=== PATIENT | female | born 1940 | race Caucasian/White ===

== ENCOUNTER → 2020-04-24 18:30 | Outpatient (BNVA) | payer MEDICARE, OTHER, SELFPAY | PROVIDERS: Family Provider Family Medicine; Visit Provider Nurse Practitioner Family | DX: Z11.59 Encounter for screening for other viral diseases (principal) | CPT/HCPCS: 87635 ==

== ENCOUNTER 2020-10-31 08:40 | Emergency (ER) | payer MEDICARE, OTHER, SELFPAY ==
[2020-10-31 08:59] VITALS: BP 147/58; PULSE 61; RESP 18; TEMP 37.1; O2SAT 95; BMI 38.7
[2020-10-31 09:06] VITALS: BP 147/58; PULSE 52; RESP 18; O2SAT 100
--- NOTE | 2020-10-31 09:14 | ED_ITS ---
HPI - Extremity Problem General: Chief complaint: Extremity Injury, Lower Stated complaint: R KNEE ISSUES Time Seen by Provider: 10/31/20 08:42 History of Present Illness: HPI Narrative: Patient is an 80-year-old female comes to the ED with right knee pain. Patient says she has chronic right knee pain when she walks but today she woke up and says it was hard for her to stand her knee due to pain. She denies any injury fall or trauma to cause any acute knee pain. She took some Tylenol last night for pain. Patient says she does have history of arthritis in her knees and has had steroid joint injections in both knees in the past. Denies any erythema or warmth in her right knee. Associated symptoms: Deny chest pain, fever(s) or rash Review of Systems Const: Denies: fever(s), chills or fatigue Eyes: Denies: change in vision or eye discomfort ENMT: Denies: throat pain, odynophagia, nasal discharge or nasal congestion Card: Denies: chest pain, palpitations, edema, swelling of feet/ankles, dyspnea on exertion or orthopnea Resp: Denies: dyspnea, productive cough or non-productive cough GI: Denies: abdominal pain, nausea, vomiting, diarrhea, constipation or hematochezia : Denies: flank pain, dysuria or hematuria Musc: Reports: joint pain (right knee); Denies: neck pain, back pain or extremity swelling Skin/Breast: Denies: rash or new lesions Neuro: Denies: headache(s), numbness in extremities or weakness in extremities PFS ED PFSH: Social History Smoking and tobacco status: never smoked Alcohol intake: never Physical Exam Const: COMMON NORMALS: no acute distress, patient oriented x3 and alert GENERAL APPEARANCE: cooperative and comfortable HENMT: COMMON NORMALS: normocephalic HEAD & SCALP: normocephalic MOUTH: Normal oral and palatal mucosa present THROAT: posterior oropharynx normal and uvula midline Neck/C-Spine: COMMON NORMALS: supple GENERAL: Yes normal visual inspection Resp: COMMON NORMALS: normal respiratory effort, No retractions, No use of accessory muscles and clear to auscultation bilaterally AUSCULTATION: clear to auscultation bilaterally Cardio: COMMON NORMALS: regular rate, regular rhythm, S1 normal heart sound present, S2 normal heart sound present, No gallops present (Cardio), No clicks present (Cardio), No murmurs present (Cardio) and Peripheral pulses 2+ throughout RATE: regular rate RHYTHM: regular rhythm HEART SOUNDS: S1 normal heart sound present and S2 normal heart sound present PERIPHERAL PULSES: Peripheral pulses 2+ throughout GI: COMMON NORMALS: Normal to inspection, nondistended, normoactive bowel sounds present, Soft to palpation, non-tender and no masses PALPATION: Yes Soft to palpation : COMMON NORMALS: Yes no CVA tenderness BLADDER/KIDNEY EXAM: Yes no CVA tenderness Back/Pelvis: COMMON NORMALS: no CVA tenderness Extremity: COMMON NORMALS: normal to inspection NARRATIVE EXTREMITY EXAM: Patient's right knee had no visible deformity, erythema or warmth. It was nontender to palpation no ecchymosis or edema seen around knee. Neuro: COMMON NORMALS: patient oriented x3 and moves all extremities SENSORIUM/ORIENTATION: Yes alert Skin: GENERAL SKIN EXAM: dry skin Course Vital Signs: Vital signs: Vital Signs Temperature 98.7 F 10/31/20 10:36 Pulse Rate 45 L 10/31/20 10:36 Respiratory Rate 18 10/31/20 10:36 Blood Pressure 146/43 10/31/20 10:36 Pulse Oximetry 99 10/31/20 10:36 MDM - Extremity (Nontraumatic) MDM Narrative: Medical decision making narrative: Patient is an 80-year-old female comes in the ED with right knee pain. Denies any trauma or injury to cause right knee pain. She admits to having some chronic osteoarthritis in both knees and has gotten injections in the past for them. Patient says today she woke up she was having increased pain in right knee when weightbearing and it hurts when she extends her right knee. Right knee x-ray shows some prominent degenerative joint disease and joint effusion. Patient diagnosed with ost eoarthritis right knee and discharged home. I placed an order with case management for patient to be referred to orthopedic doctor for further evaluation of right knee. Told patient to rest, ice right knee and to take Tylenol or Motrin for pain. I told her case management will contact her in the next several days set up appoint with Ortho. Patient understood and agreed with plan. Imaging Data^: Xray Ortho: Attestation: I personally reviewed and interpreted this imaging study as follows: My impression: Radiologist's impression: [facility] [address] [place] [address] XRay Report Signed Patient: Teena Donohue Unit #: [id number] : 1940 Age/Sex: 80 / F ADM Date: 10/31/20 Loc: ER Room/Bed: Attending Dr: Ordering Provider/Ordering MD: Dav Cooper Date of Service: 10/31/20 Procedure(s): XR knee RT 3V* [id number] Accession Number(s): [id number] Report Number: [id number] PROCEDURE INFORMATION: Exam: XR Right Knee Exam date and time: 10/31/2020 9:15 AM Age: 80 years old Clinical indication: Pain; Knee; Right TECHNIQUE: Imaging protocol: XR Right knee. Views: 3 views. COMPARISON: No relevant prior studies available. FINDINGS: Bones/joints: A joint effusion is present with fluid in suprapatellar bursa. No fracture is seen. Prominent degenerative disease is present with osteophytes on the patella femoral condyles and tibial plateau. There is joint space narrowing and sclerosis especially in the lateral compartment. Soft tissues: Normal. XR/XR knee RT 3V* [id number] IMPRESSION: 1. Joint effusion. 2. Prominent degenerative disease. Dictated By: Dheeraj Bravo Signed By: Dheeraj Bravo Signed Date/Time: 10/31/20 1015 DD/ 1014 Discharge Plan Discharge Patient Disposition: Home Clinical Impression: Osteoarthritis of right knee Qualifiers: Osteoarthritis type: primary Qualified Code(s): M17.11 - Unilateral primary osteoarthritis, right knee Condition: Stable Prescriptions: No Action hydrochlorothiazide 25 mg tablet 25 mg PO DAILY RF: 0 Discharge Orders: Discharge ED (Routine); Ordered 10/31/20 Ordered By: Dav Cooper Referrals: Jacobo Kidd MD [Primary Care Provider] - Discharge Diet: Regular Discharge Activity: Increase activity as tolerated Patient Instructions: Osteoarthritis (ED) Activity Restrictions/Additional Instructions: Follow-up with medical provider as directed. Case management will be contacting you in the next several days to set up an appointment with orthopedic doctor. Take [id number] Tylenol or ibuprofen for knee pain. Rest and ice right knee to help with symptoms.. Return to the ER or your medical provider if condition worsens. Please read and understand discharge instructions. If any questions, please ask. Coding Level of Care Code ED Automatic I Threading Machine Feeder for Flavio Fwtyra Exam Comprehensive
[2020-10-31] MEDS: ibuprofen 600 mg Tablet PO (09:18)
[2020-10-31 10:36] VITALS: BP 146/43; PULSE 45; RESP 18; TEMP 37.1; O2SAT 99
--- NOTE | 2020-11-02 12:12 | DCPLANNER ---
heavy equipment sales manager had message to schedule a follow up appointment for patient with ortho. heavy equipment sales manager called the ortho clinic, spoke with Robina, gave clinic patients information. heavy equipment sales manager was told that patients information would be printed and reviewed. Clinic will call patient with appointment information.
--- NOTE | 2020-11-05 08:10 | DCPLANNER ---
Patient has a follow up appointment scheduled for , November 19, 2020 at 11:[address] Whatley at. Clinic will call patient with appointment information.
--- NOTE | 2020-12-08 08:22 | DCPLANNER ---
Patient had a follow up appointment scheduled for 11.19.[address] Whatley at [facility] - patient did attend appointment.
== END 2020-10-31 10:46 | disposition home or self-care (01) ==
PROVIDERS: Emergency Provider Physician Assistant; PCP Family Medicine
DX: M17.11 Unilateral primary osteoarthritis, right knee (principal)
CPT/HCPCS: 73562; 99283

== ENCOUNTER → 2020-11-19 12:13 | Outpatient (BNVA) | payer MEDICARE, OTHER, SELFPAY | PROVIDERS: PCP Family Medicine; Referring Provider Physician Assistant; Visit Provider Specialist | DX: M17.0 Bilateral primary osteoarthritis of knee (principal) | CPT/HCPCS: 73560; 73565 ==

== ENCOUNTER → 2021-04-09 09:59 | Outpatient (BNVA) | payer MEDICARE, OTHER, SELFPAY | PROVIDERS: PCP Family Medicine; Visit Provider Nurse Practitioner Family | DX: Z20.822 Contact with and (suspected) exposure to COVID-19 (principal) | CPT/HCPCS: 87426; 87635 ==

== ENCOUNTER → 2022-07-21 13:12 | Outpatient (BNVA) | payer MEDICARE, OTHER, SELFPAY | PROVIDERS: PCP Family Medicine; Visit Provider Family Medicine | DX: M17.11 Unilateral primary osteoarthritis, right knee (principal); L65.9 Nonscarring hair loss, unspecified | CPT/HCPCS: 84443 ==

== ENCOUNTER → 2022-08-17 13:11 | Outpatient (BNVA) | payer MEDICARE, OTHER, SELFPAY | PROVIDERS: PCP Family Medicine; Referring Provider Family Medicine; Visit Provider Specialist | DX: M17.0 Bilateral primary osteoarthritis of knee; M21.061 Valgus deformity, not elsewhere classified, right knee; M21.162 Varus deformity, not elsewhere classified, left knee | CPT/HCPCS: 73560; 73565; 99214 ==

== ENCOUNTER 2022-09-06 11:11 | Outpatient (CLI) | payer MEDICARE, OTHER, SELFPAY ==
--- NOTE | 2022-09-06 14:30 | CT_ITS ---
WS: [id number] CT RIGHT knee, noncontrast HISTORY: right knee pain TECHNIQUE: Protocol for JC total knee replacement has been obtained. This includes axial imaging th rough the RIGHT hip, RIGHT knee and RIGHT ankle. DLP: 872.07 mGy.cm COMPARISON: None available. Pelvis: No significant joint space narrowing at the hips. No osseous destruction. Sigmoid diverticula r disease. RIGHT knee: Tricompartment joint space narrowing with osteophytes. Small effusion. RIGHT ankle: No significant joint space narrowing or bone destruction. CT/CT knee RT wo con* [id number] IMPRESSION: CT imaging provided for CJ robotic total knee replacement.
== END 2022-09-06 11:12 | disposition home or self-care (01) ==
LOC: RAD 11:12
PROVIDERS: PCP Family Medicine; Visit Provider Specialist
DX: M17.11 Unilateral primary osteoarthritis, right knee (principal)
CPT/HCPCS: 73700

== ENCOUNTER → 2022-09-19 09:01 | Outpatient (BNVA) | payer MEDICARE, OTHER, SELFPAY | PROVIDERS: PCP Family Medicine; Visit Provider Specialist | DX: M17.11 Unilateral primary osteoarthritis, right knee (principal); M21.061 Valgus deformity, not elsewhere classified, right knee | CPT/HCPCS: 99214 ==

== ENCOUNTER 2022-09-20 06:00 | Outpatient (CLI) | payer MEDICARE, OTHER, SELFPAY | END 2022-09-20 06:01 | disposition home or self-care (01) | LOC: LAB 09-23 08:28 | PROVIDERS: PCP Family Medicine; Visit Provider Specialist | DX: Z01.89 Encounter for other specified special examinations (principal) | CPT/HCPCS: 80053; 81001; 85025 ==

== ENCOUNTER 2022-09-20 11:56 | Outpatient (CLI) | payer MEDICARE, OTHER, SELFPAY | END 2022-09-20 11:57 | disposition home or self-care (01) | LOC: RT 11:57 | PROVIDERS: PCP Family Medicine; Visit Provider Specialist | DX: Z13.6 Encounter for screening for cardiovascular disorders (principal); I45.10 Unspecified right bundle-branch block | CPT/HCPCS: 93005 ==

== ENCOUNTER 2022-09-27 18:01 | Observation (INO) | payer MEDICARE, OTHER, SELFPAY ==
[2022-09-20 10:13] VITALS: BMI 34.9
--- NOTE | 2022-09-20 10:15 | ECG_ITS ---
[facility] Test Date: 2022-09-20 Pat Name: Teena Donohue Department: Room: Gender: Female Clinical Research Management Associate: : 1940 Requested By: Spenser Baires Order Number: [id number] Alice MD: Mohsen Rob M.D. Measurements Intervals [place] Rate: 77 P: 1 ME: 157 QRS: -22 QRSD: 143 T: 25 QT: 426 QTc: 484 Interpretive Statements SINUS RHYTHM WITH FREQUENT VENTRICULAR PREMATURE COMPLEXES RIGHT BUNDLE BRANCH BLOCK [120+ ms QRS DURATION, UPRIGHT V1, 40+ ms S IN I/aVL/V4/V5/V6] POSSIBLE ANTERIOR MYOCARDIAL INFARCTION , OF INDETERMINATE AGE [30 ms Q WAVE IN V3/V4, OR R < 0.2 mV IN V4] No previous ECG available for comparison Electronically Signed On 09-20-2022 11:45:35 MH TEACHER by Mohsen Rob M.D. [email or web address]
[2022-09-20 11:00] LABS: Basophils # 0.1 10^3/uL (0.0-0.1); Basophils % 0.7 %; Eosinophils # 0.2 10^3/uL (0.0-0.8); Eosinophils % 2.1 %; Hematocrit 40.2 % (37.0-47.0); Hemoglobin 13.2 g/dL (11.5-15.3); Lymphocytes # 2.2 10^3/uL (0.8-4.8); Lymphocytes % 29.8 %; Mean Corpuscular HGB Conc 32.8 g/dL (30.0-36.0); Mean Corpuscular Hemoglobin 30.6 pg (28.0-34.0); Mean Corpuscular Volume 93.3 fl (81-99); Mean Platelet Volume 11.3 fL (7.4-10.4); Monocytes # 0.7 10^3/uL (0.2-0.9); Monocytes % 9.1 %; Neutrophils # 4.22 10^3/uL (1.8-7.7); Neutrophils % 57.9 %; Nucleated Red Blood Cells % 0 %; Platelet Count 229 10^3/cmm (130-400); Red Blood Count 4.31 10^6/uL (4.1-5.3); Red Cell Distribution Width 12.3 % (12.1-15.1); White Blood Count 7.3 10^3/uL (4.0-10.0)
[2022-09-20 11:21] LABS: Alanine Aminotransferase 15 U/L (0-33); Albumin Level 3.7 g/dL (3.5-5.2); Alkaline Phosphatase 70 U/L (35-105); Aspartate Amino Transferase 18 U/L (0-32); Blood Urea Nitrogen 15 mg/dL (8-23); Calcium 10.1 mg/dL (8.5-10.5); Carbon Dioxide 29 mmol/L (22-29); Chloride 95 mmol/L (98-107); Globulin 2.9 g/dL (1.3-4.6); Glucose 152 mg/dL (65-115); Osmolality Calculated 286 mOsm/kg (285-295); Sodium 136 mmol/L (136-145); Total Bilirubin 0.3 mg/dL (0.15-1.2); Total Protein 6.6 g/dL (6.6-8.7)
[2022-09-20 11:49] LABS: Bilirubin Urine Neg (Negative); Blood Urine Neg (Negative); Glucose Urine UA Norm (Normal); Ketones Urine Negative (Negative); Leukocyte Esterase Urine Trace (Negative); Nitrate Urine Negative (Negative); Protein Urine Neg (Negative); Specific Gravity, Urine 1.015 (1.005-1.030); Urine Appearance Clear (CLEAR); Urine Color Yellow (Yellow); Urobilinogen Urine Norm (Negative); pH Urine 6.5 (5-7)
[2022-09-20 11:50] LABS: Add Urine Microscopic? YES; Amorphous Sediment Urine TRACE /hpf; Bacteria Urine TRACE /hpf; Mucus Urine TRACE /hpf; Squamous Epithelial Cell Urine 0-4 /hpf (0-5); WBC Urine 0-4 /hpf (0-5)
[2022-09-20 11:51] LABS: Add Urine Culture? No; Hyaline Casts Urine RARE /lpf
--- NOTE | 2022-09-20 13:35 | ANES.PREANE2 ---
Pre-Anesthetic Assessment Height/Weight: Height 1.57 m Weight 86.636 kg Preop Diagnosis: Severe osteoarthritis right knee Operation Date: 09/27/22 13:50 Proposed Procedures p RIGHT TOTAL KNEE ARTHROPLASTY WITH JC GUIDANCE 99359,M1710(Right) - Ericka Whatley MD Familial anesthetic complications: none Was Beta Diana taken within 24 hours: Yes Was Clonidine taken within 24 hours: N/A Social No alcohol and No tobacco Exam alert, oriented x 3, clear to auscultation bilaterally and regular rate & rhythm Airway Submandibular: within normal limits Cervical ROM: within normal limits Mallampati: Class II Dentition: chipped CV/HEM Hypertension Metabolic Morbid Obesity [facility] Osteoarthritis/DJD Anesthetic Plan ASA status: 3 Anesthesia: Regional (specify below) (SAB with adductor blk) Medications/Allergies Home Medications Medication Instructions Recorded Confirmed Last Taken Type atenolol 50 mg-chlorthalidone 25 1 tab PO DAILY 03/12/22 09/20/22 1 Day Ago History mg tablet ~09/19/22 allopurinol 100 mg tablet 100 mg PO DAILY #30 tabs 08/05/22 09/20/22 1 Day Ago Rx ~09/19/22 acetaminophen 500 mg tablet 500 mg PO Q6H PRN Pain 08/17/22 09/20/22 1 Day Ago History (Tylenol Extra Strength) ~09/19/22 cholecalciferol (vitamin D3) 25 25 mcg PO DAILY 08/17/22 09/20/22 1 Day Ago History mcg/drop (1,000 unit/drop) oral ~09/19/22 drops cinnamon bark-chromium picolinate cap PO 08/17/22 09/19/22 1 Day Ago History 500 mg-100 mcg capsule ~09/19/22 glucosamine-chondroitin 250 mg-200 2 tab PO TID 08/17/22 09/20/22 1 Day Ago History mg tablet (Osteo Bi-Flex) ~09/19/22 magnesium chloride 71.5 mg 71.5 mg PO DAILY 08/17/22 09/20/22 1 Week Ago History (magnesium chloride) ~09/13/22 tablet,delayed release (Slow-Mag) potassium citrate 99 mg capsule mg PO 08/17/22 09/19/22 1 Week Ago History ~09/13/22 Allergies Allergy/AdvReac Type Severity Reaction Status Date / Time No Known Allergies Allergy Verified 09/20/22 10:06 [facility] Anesthesia Social History Smoking and tobacco status: never smoked Alcohol intake: never Data Anesthesia 09/20/22 10:35 09/20/22 10:35 Short CBC 09/20/22 Range/Units 10:35 WBC 7.3 (4.0-10.0) 10^3/uL Hgb 13.2 (11.5-15.3) g/dL Hct 40.2 (37.0-47.0) % MCV 93.3 (81-99) fl Plt Count 229 (130-400) 10^3/cmm Neut % (Auto) 57.9 % Neut # (Auto) 4.22 (1.8-7.7) 10^3/uL BMP 09/20/22 10:35 Sodium 136 Potassium 3.0 L Chloride 95 L Carbon Dioxide 29 BUN 15 Creatinine 0.8 Glucose 152 H Calcium 10.1 Liver Function 09/20/22 Range/Units 10:35 Total Bilirubin 0.3 (0.15-1.2) mg/dL AST 18 (0-32) U/L ALT 15 (0-33) U/L Alkaline Phosphatase 70 (35-105) U/L Albumin 3.7 (3.5-5.2) g/dL Urine 09/20/22 Range/Units 10:40 Urine Color Yellow (Yellow) Urine Appearance Clear (CLEAR) Urine pH 6.5 (5-7) Ur Specific [place] 1.015 (1.005-1.030) Urine Protein Neg (Negative) Urine Glucose (UA) Norm (Normal) Urine Ketones Negative (Negative) Urine Nitrate Negative (Negative) Urine Bilirubin Neg (Negative) Ur Leukocyte Esterase Trace H (Negative) Urine RBC None (0-2) /hpf Urine WBC 0-4 H (0-5) /hpf Cardiac Studies: No Data to Display
[2022-09-27] VITALS (13 sets, daily range): BP systolic 111–156; BP diastolic 59–93; PULSE 55–77; RESP 16–22; TEMP 36.2–36.7; O2SAT 90–95
[2022-09-27] MEDS: gabapentin 300 mg Capsule PO (09:49)
[2022-09-27] MEDS: CELEcoxib 200 mg Capsule 400 MG PO (09:49)
[2022-09-27] MEDS: acetaminophen 1,000 MG/100 ML PIGGYBACK 400 MG IV ×2 (09:50→18:37)
[2022-09-27] MEDS: sodium chloride 0.9% 1,000 ML 30 ML IV (09:51)
--- NOTE | 2022-09-27 10:43 | ANES.PROC ---
Anesthesia Procedures Procedure/Date: 09/27/22 Nerve Block ^: Nerve Block 1: Main Anesthesia: spinal anesthesia block Time Out Performed: Yes Consent: requested by attending/covering physician, from patient, from other, risks and benefits reviewed and patient agrees to proceed Nerve block location: adductor canal (R) Anesthesia monitors applied: pulse oximetry, EKG, BP cuff and oxygen Nerve block position: supine Anesthetic Used: ropivicaine 0.5% (30 ml) and with bicarb (4 mg) Ultrasound used to: recognize landmarks and visualize and ID femerol nerve Interscalene/Femoral BLK: 4 stimuplex 21 g needle used for position and inplane approach, visualize local anesthetic spread and no vascular puncture identified Injection: neg aspiration of heme Patient Tolerated Procedure: well Complications: none
--- NOTE | 2022-09-27 13:04 | W.PM.OPSUD ---
Surgery/Procedure H&P Update DATE OF PROCEDURE: September 27, 2022 DATE H&P PERFORMED: 09/19/22 H&P UPDATE INFORMATION: I have reviewed H&P completed within last 30 days, I have examined patient prior to procedure, No changes to prior documentation and H&P is in [facility] EMR on date indicated PREOP DIAGNOSIS: Severe osteoarthritis right knee with valgus deformity PLANNED PROCEDURE: Operation Date: 09/27/22 13:50 Proposed Procedures p RIGHT TOTAL KNEE ARTHROPLASTY WITH JC GUIDANCE 69257,M1710(Right) - Ericka Whatley MD Related Problem List Diagnoses (1) Primary osteoarthritis of right knee: (2) Valgus deformity, not elsewhere classified, right knee:
[2022-09-27] MEDS: ceFAZolin 2,000 MG in sodium chloride 0.9% (plus) 50 ML 100 MG IV ×2 (14:15→21:44)
[2022-09-27] MEDS: ceFAZolin 1,000 mg SDV 2000 MG (15:29)
[2022-09-27] MEDS: vancomycin 1,000 MG SDV 1000 MG XX (15:30)
[2022-09-27] MEDS: tranexamic acid 1,000 mg/10mL SDV 1000 MG IV (16:34)
--- NOTE | 2022-09-27 17:01 | XRR_ITS ---
PROCEDURE INFORMATION: Exam: XR Right Knee Exam date and time: 09/27/2022 5:41 PM Age: 82 years old Clinical indication: Device placement; Joint replacement hardware; Patient HX: Status post right total knee arthroplasty TECHNIQUE: Imaging protocol: Radiologic exam of the right knee. Views: 1 or 2 views. COMPARISON: CT knee RT wo con* [id number] 09/06/2022 11:26 AM FINDINGS: Bones/joints: Postsurgical changes of right-sided total knee replacement since the prior study. Hardware is intact. Alignment is anatomic. No evidence of fracture. Soft tissues: Soft tissue gas is seen from surgery. Overlying skin arlene are present. XR/XR knee RT 1-2V [id number] IMPRESSION: Normal postoperative changes of right-sided total knee replacement.
--- NOTE | 2022-09-27 17:08 | PM.OP ---
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 Specimens removed/disposition: Bone, disposed of Pathology: none sent Surgeon: Ericka Whatley Materials Inspector: [facility] operating room technicians Anesthesia: MAC (With spinal, ASA 3, supplemental abductor block) Estimated blood loss (mL): 50 Tourniquet time (min): 88 (At 250 mmHg) IV fluids (mL): 1,000 Urine output (mL): 100 Complications: None Findings: Severe degenerative osteoarthritic change primarily involving the patellofemoral joint and lateral compartment with bone loss. Instability secondary to the valgus deformity. Condition: stable Disposition: PACU (Then to floor for postoperative rehabilitation and pain management) Brief History: This is an established 82 year old female patient who is here today for right total knee arthroplasty with Troy guidance. Patient states she continues to have knee pain with ambulation and this causes her to have to walk with a cane.? Significant limitations in her activities of daily living.? Patient was seen in the office, and the surgical procedure was discussed in detail. Questions were answered and consents were signed. Conservative measures were not of benefit. The patient wished to proceed. Procedure: The patient was brought to the operating theater, and after undergoing spinal anesthesia with supplemental MAC, as well as an adductor canal block, ASA 3, the right lower extremity was prepped with Dura-Prep and draped in usual fashion following placement of a tourniquet high on the leg. The leg was then draped free. Following prepping and draping, the leg was exsanguinated, and the tourniquet was elevated to 250 mmHg for a total tourniquet time of 88 minutes.? Prior to elevation of the tourniquet, but following exposure of the site of surgery, a surgical pause was performed. At the time of the surgical pause, we confirmed the site and side of surgery. Additionally, we confirmed the appropriate and timely administration of preoperative antibiotics, Ancef 2 g and Transexemic acid 1 g.? The availability of equipment was confirmed, and the patient's identity was verbalized as well.? An additional transexemic acid 1 g was given at the end of the surgical procedure as well. Following the surgical pause, an incision was made centering over the patella continuing proximally and distally as necessary to allow access to the knee joint. Dissection continued through skin and soft tissues using a scalpel. Hemostasis was obtained using electrocautery. The skin incision was followed by a median parapatellar arthrotomy. The leg was extended and the patella was able to be displaced laterally.? Appropriate arrays and markers were placed in appropriate position for use of the Troy.? Preoperative planning had been accomplished and was discussed in detail with the Troy compliance representative.? Intraoperative mapping of the femur and tibia was accomplished after the arrays were placed.? Internal markers were also placed.? Once we had accomplished the Troy mapping, we began the appropriate resections for placement of the prosthesis.? The plan was for a cruciate retaining right total knee arthroplasty. Once appropriate mapping had been accomplished retraction was established using manual retraction by surgical technicians and also the Troy leg positioner and retractors.? The knee was evaluated.? There was significant osteoarthritic change as well as severe valgus deformity with instability.? Appropriate bone resection was accomplished using the Troy.? The femur was sized to a size 3.? Following femoral cuts, attention was directed to the tibia.? Osteophytes were removed prior to this portion of the procedure.? We had performed a minimal medial release at the beginning of the procedure to allow for placement of the array.? Proximal tibia was evaluated and it was felt that appropriate size for the tibia was a size 3. Tray was noted to fit nicely with good coverage. Rim fit was accomplished with the size 3. A trial reduction was accomplished after osteophytes have been removed as well as the medial and lateral menisci.? We had removed the anterior cruciate ligament at the beginning of the case and preserved the posterior cruciate ligament.? Trial reduction was accomplished with a size 3 femoral cruciate retaining component and a size 3 CS tibial bearing insert which was 9 mm in thickness. The increased thickness of the CS tibial bearing insert to a size 11 for trial reductions and placed a size 12. This gave excellent varus valgus stability and full extension.? Alignment was felt to be appropriate as well.? As the patient had a valgus deformity preoperatively, soft tissue releases were accomplished as necessary.? Trial components were removed after the femur had been drilled.? Prior to removal of the tibial tray which had been pinned in position with appropriate rotation as determined by the Troy plan, we broached the tibia.? Subsequently, the 4 drill holes were made for the prosthetic component.? All trial components were removed, and the wound was irrigated.? Plans were made for insertion of the prosthetic components.? Prior to this, the patella was manually prepared.? After resection of the articular surface with the jogging system, it was measured and measured a 29 mm patella.? We resected approximately 6 mm of patella due to thinning of the patella from the deformity and osteoarthritic change. Patellar height was restored with the patellar component. Once again, the wound was irrigated.? The Tritanium tibia was impacted into position.? The beaded femur was then impacted into position in a cementless fashion. The CS tibial insert was placed prior to placement of the femoral component. The patella was pressed into position with a patellar clamp.? Exparel was injected about the components deep and superficially.? The knee was then copiously irrigated with betadine and saline and suctioned dry. Attention was then directed to closure. Closure was accomplished with 0 Vicryl in the fascial tissues.? This was followed by Surgiflo and vancomycin powder.? Following this, a 2-0 Monocryl was used in the subcutaneous tissues, and the skin was closed with skin ralene.? Care was taken to assure an excellent subcutaneous as well as skin closure.? A sterile dressing was then placed consisting of Dermabond Prineo, OpSite, sterile soft roll including over the foot, and an Javi wrap. The patient was returned the Recovery Room in a satisfactory condition. X-rays were obtained and reviewed there.? The patient will be discharged to the floor for postoperative rehabilitation and pain management. Related Problem List Diagnoses (1) Primary osteoarthritis of right knee: (2) Valgus deformity, not elsewhere classified, right knee:
--- NOTE | 2022-09-27 17:45 | ANE.PACU2 ---
Inpatient post-anesthesia follow up: Airway intact: Yes Vital signs: Temperature 97.5 F Pulse Rate 61 Respiratory Rate 17 Blood Pressure 117/75 Pulse Oximetry 90 Oxygen Delivery Me thod Room Air Oxygen Flow Rate Fraction of Inspir ed Oxygen Hydration adequate: Yes Nausea and vomiting: No Pain level: 1 Mental status: Baseline
[2022-09-27] MEDS: sennosides-docusate Tablet 2 TAB PO (18:36)
[2022-09-27] MEDS: calcium carbonate 500 mg Chew Tablet 1000 MG PO (18:36)
[2022-09-27] MEDS: iron polysaccharide complex 150 mg Capsule PO (18:37)
[2022-09-27] MEDS: mupirocin oint 22 gm 1 APPLIC NASAL (18:37)
[2022-09-27] MEDS: chlorhexidine gluconate 0.12% Btl 473 mL 30 ML MUCOUS MEM (20:38)
[2022-09-27] MEDS: CELEcoxib 200 mg Capsule PO (21:44)
[2022-09-28] VITALS (7 sets, daily range): BP systolic 101–140; BP diastolic 64–75; PULSE 56–73; RESP 17–18; TEMP 36.4–36.7; O2SAT 90–94
[2022-09-28] MEDS: acetaminophen 1,000 MG/100 ML PIGGYBACK 400 MG IV (01:36)
[2022-09-28] MEDS: ceFAZolin 2,000 MG in sodium chloride 0.9% (plus) 50 ML 100 MG IV ×2 (05:31→14:09)
[2022-09-28 06:05] LABS: Basophils % 0.1 %; Hematocrit 37.4 % (37.0-47.0); Hemoglobin 11.9 g/dL (11.5-15.3); Lymphocytes % 7.1 %; Mean Corpuscular HGB Conc 31.8 g/dL (30.0-36.0); Mean Corpuscular Hemoglobin 30.4 pg (28.0-34.0); Mean Corpuscular Volume 95.4 fl (81-99); Mean Platelet Volume 11.3 fL (7.4-10.4); Monocytes # 0.8 10^3/uL (0.2-0.9); Monocytes % 5.7 %; Neutrophils % 86.6 %; Nucleated Red Blood Cells % 0 %; Platelet Count 207 10^3/cmm (130-400); Red Blood Count 3.92 10^6/uL (4.1-5.3); Red Cell Distribution Width 12.4 % (12.1-15.1); White Blood Count 14.3 10^3/uL (4.0-10.0)
[2022-09-28 06:37] LABS: Anion Gap 15.7 (5-19); Blood Urea Nitrogen 17 mg/dL (8-23); Calcium 9.7 mg/dL (8.5-10.5); Carbon Dioxide 24 mmol/L (22-29); Chloride 98 mmol/L (98-107); Glucose 172 mg/dL (65-115); Osmolality Calculated 284 mOsm/kg (285-295); Potassium 3.7 mmol/L (3.5-5.1); Sodium 134 mmol/L (136-145)
[2022-09-28] MEDS: iron polysaccharide complex 150 mg Capsule PO (08:15)
[2022-09-28] MEDS: atenolol 50 mg Tablet PO (08:15)
[2022-09-28] MEDS: chlorthalidone 25 mg Tablet PO (08:15)
[2022-09-28] MEDS: aspirin 325 mg EC Tablet PO (08:15)
[2022-09-28] MEDS: calcium carbonate 500 mg Chew Tablet 1000 MG PO (08:15)
[2022-09-28] MEDS: allopurinol 100 mg Tablet PO (08:15)
[2022-09-28] MEDS: sennosides-docusate Tablet 2 TAB PO (08:16)
[2022-09-28] MEDS: multivitamin therapeutic Tablet 1 TAB PO (08:16)
[2022-09-28] MEDS: cholecalciferol (vitamin D3) 1,000 unit Tablet 1000 UNIT PO (08:16)
[2022-09-28] MEDS: oxyCODONE 5 mg IR Tab/Cap PO ×2 (08:27→14:11)
[2022-09-28] MEDS: mupirocin oint 22 gm 1 APPLIC NASAL (08:31)
[2022-09-28] MEDS: chlorhexidine gluconate 0.12% Btl 473 mL 30 ML MUCOUS MEM (08:32)
--- NOTE | 2022-09-28 09:35 | PC.CHAP ---
Pastoral Care Encounter/Spiritual Assessment Type of Contact [] Declined housekeeping director visit [] Patient/Family/Request visit [] Outpatient visit [] Follow-up visit [] Physician referral [] Code/Alert [x] Routine visit [] Staff referral [] Actively dying [] Patient sleeping [] Family support [] [] Out of room [] Palliative care [] [] Receiving care in room [] Pre-surgical visit [] Trauma [] Long length of stay [] ICU visit [] Other: Relational/Emotional Strength [x] Patient feels connected with others/family/visitors/staff [] Distress [] Loneliness/isolation [] Abandonment Spirituality of Patient [x] Person of Haylee [x] Attends Anglican of their Haylee [x] Believes in Prayer [x] Reads Bible or Mosque materials [] There are Spiritual issues to be addressed Inpatient Auditor Interventions [x] Prayer [x] Active listening [x] Non-anxious presence [x] Spiritual/emotional support [] Crisis/trauma care [] Spiritual counseling [] Bereavement support [] Provided bereavement packet [] Provided Bible/devotional materials [] Provided toy/stuffed animal, coloring book to patient or family member [] Provided Communion [] Anointing/[place] [] Salvation [x] Completed spiritual assessment [] Other: Impact on Illness or Injury [] Angry [] Fearful [] Anxious [] Often cries [] Exhaustion [] Unable to work [] Unable to attend amish [] Unable to walk/stand [] Unable to read [] Unable to drive [] Unable to eat/drink [] Unable to sleep [] Unable to be with family [] Patient intubated [] Other: Summary Pt is a [employer] friend of . Attends [employer] in [place] and is very active in the [employer]. She has a strong support system for once she leaves the hospital. Time spent with patient 15m
--- NOTE | 2022-09-28 11:41 | P.DS_ITS ---
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 Patient states she continues to have knee pain with ambulation and this causes her to have to walk with a cane.? Significant limitations in her activities of daily living.? Patient was seen in the office, and the surgical procedure was discussed in detail.? Questions were answered and consents were signed.? Conservative measures were not of benefit.? The patient wished to proceed. Hospital Course Hospital Course Patient was admitted to observation status following same-day surgery for right total knee arthroplasty with Troy assistance. The patient did well with the surgery. She participated with therapy postoperatively. On the first postoperative day, she was felt to be safe for discharge home. Her pain was well controlled. She was able to perform activities of daily living. She therefore was discharged home to follow-up with me in the office. Physical Exam Const: COMMON NORMALS: no acute distress, average body habitus, patient oriented x3 and alert GENERAL APPEARANCE: cooperative and comfortable ORIENTATION/CONSCIOUSNESS: Yes awake HENMT: COMMON NORMALS: normocephalic and atraumatic HEAD & SCALP: normocephalic and atraumatic Eye: GENERAL EYE: appearance normal, both eyes and all related structures Chest: COMMONS NORMALS: normal inspection of the chest Resp: COMMON NORMALS: normal respiratory effort EFFORT & INSPECTION: Yes able to speak in complete sentences and Yes symmetric chest movement Extremity: RIGHT LOWER EXTREMITY: Yes knee joint (Minimal to no swelling.) Right knee: Yes inspection (No significant ecchymosis.), Yes palpation (Minimal discomfort.) and Yes neurovascular exam (No evidence of DVT. Neurologically intact) Neuro: COMMON NORMALS: patient oriented x3 SENSORIUM/ORIENTATION: Yes alert Psych: COMMON NORMALS: mental status grossly normal APPEARANCE: Yes grossly normal ATTITUDE: Yes calm and Yes engaged ATTENTION/CONCENTRATION: Yes attention grossly intact Skin: COMMON NORMALS: no rashes or lesions noted GENERAL SKIN EXAM: no rashes or lesions noted Urinary Catheter Management: Gallagher: Cath Placed During This Visit: yes, but has since been removed by the nurse Urinary Catheter Date of Insertion: 09/27/22 Urinary Catheter Time of Insertion: 14:50 Date Urinary Catheter Removed: 09/28/22 Discharge Data Studies Completed and Pending Completed Studies During Hospitalization Category Date Time Status XR knee RT 1-2V [id number] Urgent Exams 09/27/22 17:01 Completed Radiology Impressions Knee X-Ray 09/27/22 17:01 IMPRESSION: Normal postoperative changes of right-sided total knee replacement. Laboratory Results WBC 14.3 10^3/uL (4.0-10.0) H 09/28/22 05:22 RBC 3.92 10^6/uL (4.1-5.3) L 09/28/22 05:22 Hgb 11.9 g/dL (11.5-15.3) 09/28/22 05:22 Hct 37.4 % (37.0-47.0) 09/28/22 05:22 MCV 95.4 fl (81-99) 09/28/22 05:22 MCH 30.4 pg (28.0-34.0) 09/28/22 05:22 MCHC 31.8 g/dL (30.0-36.0) 09/28/22 05:22 RDW 12.4 % (12.1-15.1) 09/28/22 05:22 Plt Count 207 10^3/cmm (130-400) 09/28/22 05:22 MPV 11.3 fL (7.4-10.4) H 09/28/22 05:22 Neut % (Auto) 86.6 % 09/28/22 05:22 Lymph % (Auto) 7.1 % 09/28/22 05:22 [place] % (Auto) 5.7 % 09/28/22 05:22 Eos % (Auto) 0.0 % 09/28/22 05:22 Baso % (Auto) 0.1 % 09/28/22 05:22 Neut # (Auto) 12.40 10^3/uL (1.8-7.7) H 09/28/22 05:22 Lymph # (Auto) 1.0 10^3/uL (0.8-4.8) 09/28/22 05:22 [place] # (Auto) 0.8 10^3/uL (0.2-0.9) 09/28/22 05:22 Eos # (Auto) 0.0 10^3/uL (0.0-0.8) 09/28/22 05:22 Baso # (Auto) 0.0 10^3/uL (0.0-0.1) 09/28/22 05:22 Nucleated RBC % (auto) 0 % 09/28/22 05:22 Nucleated RBCs # 0.0 /100WBC 09/28/22 05:22 Sodium 134 mmol/L (136-145) L 09/28/22 05:22 Potassium 3.7 mmol/L (3.5-5.1) 09/28/22 05:22 Chloride 98 mmol/L (98-107) 09/28/22 05:22 Carbon Dioxide 24 mmol/L (22-29) 09/28/22 05:22 Anion Gap 15.7 (5-19) 09/28/22 05:22 BUN 17 mg/dL (8-23) 09/28/22 05:22 Creatinine 1.0 mg/dL (0.5-0.9) H 09/28/22 05:22 GFR Calculation Not Reportable 09/28/22 05:22 Glucose 172 mg/dL (65-115) H 09/28/22 05:22 Calculated Osmolality 284 mOsm/kg (285-295) L 09/28/22 05:22 Calcium 9.7 mg/dL (8.5-10.5) 09/28/22 05:22 Total Bilirubin 0.3 mg/dL (0.15-1.2) 09/20/22 10:35 AST 18 U/L (0-32) 09/20/22 10:35 ALT 15 U/L (0-33) 09/20/22 10:35 Alkaline Phosphatase 70 U/L (35-105) 09/20/22 10:35 Total Protein 6.6 g/dL (6.6-8.7) 09/20/22 10:35 Albumin 3.7 g/dL (3.5-5.2) 09/20/22 10:35 Globulin 2.9 g/dL (1.3-4.6) 09/20/22 10:35 Urine Color Yellow (Yellow) 09/20/22 10:40 Urine Appearance Clear (CLEAR) 09/20/22 10:40 Urine pH 6.5 (5-7) 09/20/22 10:40 Ur Specific [place] 1.015 (1.005-1.030) 09/20/22 10:40 Urine Protein Neg (Negative) 09/20/22 10:40 Urine Glucose (UA) Norm (Normal) 09/20/22 10:40 Urine Ketones Negative (Negative) 09/20/22 10:40 Urine Blood Neg (Negative) 09/20/22 10:40 Urine Nitrate Negative (Negative) 09/20/22 10:40 Urine Bilirubin Neg (Negative) 09/20/22 10:40 Urine Urobilinogen Norm mg/dL (Negative) 09/20/22 10:40 Ur Leukocyte Esterase Trace (Negative) H 09/20/22 10:40 Urine RBC None /hpf (0-2) 09/20/22 10:40 Urine WBC 0-4 /hpf (0-5) H 09/20/22 10:40 Ur Squamous Epith Cells 0-4 /hpf (0-5) H 09/20/22 10:40 Amorphous Sediment Trace /hpf 09/20/22 10:40 Urine Bacteria Trace /hpf (NONE) 09/20/22 10:40 Hyaline Casts Rare /lpf 09/20/22 10:40 Urine Mucus Trace /hpf 09/20/22 10:40 Vitals Last Vital Signs Temp 98.0 F 09/28/22 08:13 Pulse 56 L 09/28/22 08:13 Resp 17 09/28/22 08:27 BP 119/67 09/28/22 08:13 Pulse Ox 90 09/28/22 08:27 O2 Del Method 09/28/22 08:13 Discharge Plan Discharge Patient Disposition: Home Health Service Condition: Stable Prescriptions: New acetaminophen 500 mg Tablet 1,000 mg PO Q8H Qty: 0 0RF aspirin 325 mg Tablet,Delayed Release (Dr/Ec) 325 mg PO DAILY Qty: 0 0RF celecoxib 200 mg Capsule 200 mg PO Q12H 30 Days Qty: 60 0RF oxycodone 5 mg Tablet 5 mg PO Q4H PRN (Reason: Moderate Pain) 30 Days Qty: 7 0RF Continued acetaminophen [Tylenol Extra Strength] 500 mg tablet 500 mg PO Q6H PRN (Reason: Pain) glucosamine-chondroitin [Osteo Bi-Flex] 250-200 mg tablet 2 tab PO TID Rx Instructions: give after food/meal Slow-Mag 71.5 mg tablet,delayed release (DR/EC) 71.5 mg PO DAILY cinnamon bark-chromium picolin 500-100 mg-mcg capsule PO cholecalciferol (vitamin D3) 25 mcg/drop ( 1,000 unit/drop) drops 25 mcg PO DAILY potassium citrate 99 mg capsule PO atenolol-chlorthalidone 50-25 mg tablet 1 tab PO DAILY sulfamethoxazole-trimethoprim [Bactrim DS] 800-160 mg tablet 1 tab PO Q12H Qty: 14 0RF allopurinol 100 mg tablet 100 mg PO DAILY Qty: 30 11RF Discharge Orders: Discharge Order (Routine); Ordered 09/28/22 Ordered By: Ericka Whatley Referrals: [facility] [place] [facility] ([facility]) [Outside] Ericka Whatley MD [Physician] - 10/12/22 9:15 am Discharge Diet: Advance as tolerated and Usual diet Discharge Activity: Increase activity as tolerated, Limit activity as instructed, Use walker/crutches as instructed and As per PT/OT instructions Patient Instructions: Aspirin (By mouth), Celecoxib (By mouth), Oxycodone, Slow Release (By mouth), Knee Replacement (GEN), Opioid Safety Activity Restrictions/Additional Instructions: Ice and elevation to right knee. Elevate. Weight-bear as tolerated. Physical therapy for gait training, strengthening, and ambulation. Discharge Attestations Time Spent in Discharge Care*: greater than 30 min Specific Discharge Activities: educating patient, educating and/or supporting family/caregiver, documenting/other paperwork and evaluating patient/reviewing data Quality Metrics Clinical Quality Measures [ No reported AMI, CVA or VTE this stay] Coding Level of Care Code Acute Code for Chg Fwd Diagnoses Primary osteoarthritis of right knee M17.11 Valgus deformity, not elsewhere classified, right knee M21.061
== END 2022-09-28 17:01 | disposition home health service (06) ==
LOC: MEDSURG 18:01
PROVIDERS: Admitting Provider Specialist; PCP Family Medicine; Visit Provider Specialist
PROC: 8E0Y0CZ Robotic Assisted Procedure of Lower Extremity, Open Approach (ICD-10-PCS; CPT 27447; principal; 2022-09-27 13:20)
DX: M17.11 Unilateral primary osteoarthritis, right knee (principal); M21.061 Valgus deformity, not elsewhere classified, right knee; I10 Essential (primary) hypertension; E66.01 Morbid (severe) obesity due to excess calories; Z68.34 Body mass index [BMI] 34.0-34.9, adult
CPT/HCPCS: 27447; 36415; 51702; 73560; 80048; 80053; 81001; 85025; 97110; 97116; 97161; 97165; 97530; C1776; C9290; G0378; J0131; J0690; J1100; J2370; J2704; J2795; J3010; J3370; J3490; J7030

== ENCOUNTER → 2022-10-12 09:19 | Outpatient (BNVA) | payer MEDICARE, OTHER, SELFPAY | PROVIDERS: PCP Family Medicine; Visit Provider Nurse Practitioner Family | DX: Z96.651 Presence of right artificial knee joint (principal) | CPT/HCPCS: 73560; 73565; 99024 ==

== ENCOUNTER 2022-10-25 06:00 | Outpatient (RCR) | payer MEDICARE, OTHER, SELFPAY | END 2022-11-04 23:59 | disposition home or self-care (01) | LOC: SPT 06:00 | PROVIDERS: PCP Family Medicine; Visit Provider Specialist | DX: Z96.651 Presence of right artificial knee joint (principal); Z47.1 Aftercare following joint replacement surgery | CPT/HCPCS: 97110; 97161 ==

== ENCOUNTER 2022-11-05 06:00 | Outpatient (RCR) | payer MEDICARE, OTHER, SELFPAY | END 2022-11-23 23:59 | disposition home or self-care (01) | LOC: SPT 06:00 | PROVIDERS: PCP Family Medicine; Visit Provider Specialist | DX: Z47.89 Encounter for other orthopedic aftercare (principal) | CPT/HCPCS: 97110 ==

== ENCOUNTER → 2022-11-09 11:13 | Outpatient (BNVA) | payer MEDICARE, OTHER, SELFPAY | PROVIDERS: PCP Family Medicine; Visit Provider Nurse Practitioner Family | DX: Z96.651 Presence of right artificial knee joint (principal) | CPT/HCPCS: 73560; 73565; 99024; 99213 ==

== ENCOUNTER → 2023-01-30 14:42 | Outpatient (BNVA) | payer MEDICARE, OTHER, SELFPAY | PROVIDERS: PCP Family Medicine; Visit Provider Podiatrist Foot & Ankle Surgery | DX: M76.821 Posterior tibial tendinitis, right leg (principal); M25.371 Other instability, right ankle | CPT/HCPCS: 99204 ==

== ENCOUNTER → 2023-02-09 09:18 | Outpatient (BNVA) | payer MEDICARE, OTHER, SELFPAY | PROVIDERS: PCP Family Medicine; Visit Provider Nurse Practitioner Family | DX: Z96.651 Presence of right artificial knee joint (principal); M17.12 Unilateral primary osteoarthritis, left knee | CPT/HCPCS: 73560; 73565; 99213 ==

== ENCOUNTER → 2023-04-17 12:43 | Outpatient (BNVA) | payer MEDICARE, OTHER, SELFPAY | PROVIDERS: PCP Family Medicine; Visit Provider Podiatrist Foot & Ankle Surgery | DX: M76.821 Posterior tibial tendinitis, right leg; M25.371 Other instability, right ankle | CPT/HCPCS: 99213 ==

== ENCOUNTER → 2023-05-29 14:09 | Outpatient (BNVA) | payer MEDICARE, OTHER, SELFPAY | PROVIDERS: PCP Family Medicine; Visit Provider Family Medicine | DX: R30.0 Dysuria (principal); N39.0 Urinary tract infection, site not specified | CPT/HCPCS: 81000; 87077; 87086; 87184 ==

== ENCOUNTER → 2023-06-22 15:10 | Outpatient (BNVA) | payer MEDICARE, OTHER, SELFPAY | PROVIDERS: PCP Family Medicine; Visit Provider Family Medicine | DX: L98.9 Disorder of the skin and subcutaneous tissue, unspecified (principal) | CPT/HCPCS: 88304 ==

== ENCOUNTER → 2023-11-09 13:15 | Outpatient (BNVA) | payer MEDICARE, OTHER, SELFPAY | PROVIDERS: PCP Family Medicine; Visit Provider Family Medicine | DX: I10 Essential (primary) hypertension (principal); Z00.00 Encounter for general adult medical examination without abnormal findings | CPT/HCPCS: 80053; 80061; 84550; 85025 ==

== ENCOUNTER 2023-12-17 16:41 | Emergency (ER) | payer MEDICARE, OTHER, SELFPAY ==
[2023-12-17 16:41] VITALS: BP 177/72; PULSE 65; TEMP 36.6; O2SAT 97; BMI 35.8
--- NOTE | 2023-12-17 16:49 | CTR_ITS ---
PROCEDURE INFORMATION: Exam: CT Cervical Spine Without Contrast Exam date and time: 12/17/2023 4:55 PM Age: 83 years old Clinical indication: Injury or trauma; Fall; Concussion/head injury TECHNIQUE: Imaging protocol: Computed tomography of the cervical spine without contrast. Radiation optimization: All CT scans at this facility use at least one of these dose optimization techniques: automated exposure control; mA and/or kV adjustment per patient size (includes targeted exams where dose is matched to clinical indication); or iterative reconstruction. COMPARISON: CT head wo con* [id number] 12/17/2023 4:55 PM RADIATION DOSE METRICS: Total DLP (mGy-cm): 633.1 FINDINGS: Bones: CPPD changes around the dens. There is narrowing of the C4-C5 and C5-C6 disc spaces with anterior and posterior osteophyte disc complexes causing mild bony canal narrowing. No compression deformity. No spondylolisthesis. No acute fracture. Lungs: Atelectatic changes in bilateral lung apices. Thyroid: Hypodense left thyroid nodule measuring 1.4 cm. Vasculature: There are bilateral carotid calcifications. Bilateral vascular calcifications. Soft tissues: Unremarkable. CT/CT cervical spin wo con* [id number] IMPRESSION: No posttraumatic changes in the cervical spine. COMMENTS: Consistent with the [employer]'s Incidental Findings Committee white paper (J Am Naheed Radiol 2015): In patients aged 35 years and older with an incidental thyroid nodule equal to or greater than 1.[address], MRI or extrathyroidal US, further evaluation with dedicated thyroid US is recommended for patients with normal life expectancy and without comorbidities. For smaller nodules without suspicious features, no further evaluation or follow up is recommended.
--- NOTE | 2023-12-17 16:49 | CTR_ITS ---
PROCEDURE INFORMATION: Exam: CT Head Without Contrast Exam date and time: 12/17/2023 4:55 PM Age: 83 years old Clinical indication: Injury or trauma; Fall; Concussion/head injury; Without loss of consciousness TECHNIQUE: Imaging protocol: Computed tomography of the head without contrast. Radiation optimization: All CT scans at this facility use at least one of these dose optimization techniques: automated exposure control; mA and/or kV adjustment per patient size (includes targeted exams where dose is matched to clinical indication); or iterative reconstruction. COMPARISON: CT cervical spin wo con* [id number] 12/17/2023 4:55 PM RADIATION DOSE METRICS: Total DLP (mGy-cm): 949.4 FINDINGS: Brain: Bilateral periventricular white matter and centrum semiovale hypodensities consistent with chronic ischemic small vessel disease. No recent infarct, intracranial bleed or mass effect. Age-related mineralization of the basal ganglia. Cerebral ventricles: No ventriculomegaly. Pituitary gland and sella: Partially empty sella. Paranasal sinuses: There is a mucous retention cyst in the right maxillary sinus. Mastoid air cells: Visualized mastoid air cells are well aerated. Orbital cavities: Post bilateral cataract surgery. Bones: Unremarkable. No acute fracture. Soft tissues: There is laceration in the frontal scalp. There is a right periorbital subcutaneous hematoma. CT/CT head wo con* [id number] IMPRESSION: No intracranial posttraumatic changes.
--- NOTE | 2023-12-17 16:51 | ED_ITS ---
HPI - Head Injury General: Chief complaint: Head Injury Stated complaint: HEAD LAC S/P FALL Time Seen by Provider: 12/17/23 16:45 History of Present Illness: 83-year-old female comes in today with i njuries to the frontal scalp. Patient reports that she was out in her yard trimming some branches when she tripped and fell striking a rock in her flower bed. Patient denies loss of consciousness. Patient does not take any blood thinners. Patient does have some osteoarthritis, high blood pressure, and takes an aspirin a day. 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 Procedure done: Right total knee arthroplasty with Troy guidance Implants: The [employer] total knee system with a size 3 triathlon beaded cruciate retaining femur right, a triathlon titanium tibial component size 3 beaded, a triathlon X3 tibial bearing CS insert size 3 X 12 mm and a beaded triathlon titanium asymmetric patella size 29 x 9 mm Surgical History Hx of cataract surgery Family History Denies family history of Diabetes CAD (coronary artery disease) Hypertension Social History Smoking and tobacco/nicotine status: never used tobacco/nicotine Alcohol intake: never Substance/Drug Use: never Physical Exam HENMT: COMMON NORMALS: Normal external nose present HEAD & SCALP: laceration (Frontal scalp) NOSE: Normal external nose present MOUTH: Normal oral and palatal mucosa present Eye: GENERAL EYE: appearance normal, both eyes and all related structures Neck/C-Spine: COMMON NORMALS: full ROM Resp: COMMON NORMALS: normal respiratory effort and clear to auscultation bilaterally AUSCULTATION: clear to auscultation bilaterally Cardio: COMMON NORMALS: regular rate RATE: regular rate GI: COMMON NORMALS: Soft to palpation and non-tender PALPATION: Yes Soft to palpation Back/Pelvis: COMMON NORMALS: thoracic and lumbar spine normal to inspection Extremity: COMMON NORMALS: normal to inspection Neuro: ANAMIKA COMA SCALE: document GCS findings [place] coma scale eye opening: Spontaneous [place] coma scale verbal response: Orientated [place] coma scale motor response: Obey commands [place] coma scale total score: 15 Skin: COMMON NORMALS: turgor normal GENERAL SKIN EXAM: turgor normal Procedures Laceration Laceration 1: Site: scalp Size (cm): 5.5 Description: linear Depth: simple, single layer Local Anesthetic: lidocaine 1% and with epi Amount of anesthesia used (mL): 8 Pre-repair: wound explored and irrigated extensively Skin layer closed with: nylon Size (cm): 4-0 Number of sutures: 11 Technique: simple, interrupted Course Vital Signs: Vital signs: Vital Signs Temperature 97.9 F 12/17/23 16:41 Pulse Rate 67 12/17/23 17:30 Blood Pressure 170/69 12/17/23 17:30 Pulse Oximetry 96 12/17/23 17:30 Oxygen Delivery Me thod Room Air 12/17/23 17:30 MDM - Head Injury Medcial Decision Making Patient presents to the ER with a head injury after a trip and fall in the garden. On exam patient has a laceration to the frontal forehead. Patient has a 5 and half centimeter laceration irregular to the frontal scalp. Differential diagnosis includes intracranial bleeding, skull fracture, need for prophylaxis tetanus, need for prophylaxis antibiotics, foreign body. CT of the cervical spine and neck noted no acute fracture or intracranial bleeding. Wound was thoroughly irrigated and closed with 11 sutures. Patient tolerated well. Reviewed exam and recommendations for treatment and follow-up with patient and family. Family reported understanding and agreed to plan. Lab Data Radiology Impressions Cervical Spine CT 12/17/23 16:49 IMPRESSION: No posttraumatic changes in the cervical spine. COMMENTS: Consistent with the [employer]'s Incidental Findings Committee white paper (J Am Naheed Radiol 2015): In patients aged 35 years and older with an incidental thyroid nodule equal to or greater than 1.[address], MRI or extrathyroidal US, further evaluation with dedicated thyroid US is recommended for patients with normal life expectancy and without comorbidities. For smaller nodules without suspicious features, no further evaluation or follow up is recommended. Head CT 12/17/23 16:49 IMPRESSION: No intracranial posttraumatic changes. All radiology interpretation(s) finalized by discharge Discharge Plan Discharge Patient Disposition: Home Clinical Impression: Fall from other slipping, tripping, or stumbling Head injury Qualifiers: Encounter type: initial encounter Qualified Code(s): S09.90XA - Unspecified injury of head, initial encounter Scalp laceration Qualifiers: Encounter type: initial encounter Qualified Code(s): S01.01XA - Laceration without foreign body of scalp, initial encounter Condition: Stable Prescriptions: New amoxicillin-pot clavulanate 875-125 mg tablet 1 tab PO BID Qty: 14 0RF No Action acetaminophen [Tylenol Extra Strength] 500 mg tablet 500 mg PO Q6H PRN (Reason: Pain) glucosamine-chondroitin [Osteo Bi-Flex] 250-200 mg tablet 2 tab PO TID Rx Instructions: give after food/meal Slow-Mag 71.5 mg tablet,delayed release (DR/EC) 71.5 mg PO DAILY cinnamon bark-chromium picolin 500-100 mg-mcg capsule PO cholecalciferol (vitamin D3) 25 mcg/drop ( 1,000 unit/drop) drops 25 mcg PO DAILY potassium citrate 99 mg capsule PO (DME) AFO to the Right Ankle See Rx Instructions .Route .MEDSUPPLY Qty: 1 0RF Rx Instructions: As directed by [facility] albuterol sulfate [Ventolin HFA] 90 mcg/actuation HFA aerosol inhaler 2 puff inhalation Q6H PRN (Reason: shortness of breath or wheezing) Qty: 8.5 11RF allopurinol 100 mg tablet 100 mg PO DAILY Qty: 30 11RF atenolol-chlorthalidone 50-25 mg tablet 1 tab PO DAILY Qty: 30 11RF acetaminophen 500 mg Tablet 1,000 mg PO Q8H Qty: 0 0RF aspirin 325 mg Tablet,Delayed Release (Dr/Ec) 325 mg PO DAILY Qty: 0 0RF Discharge Orders: Discharge ED (Routine); Ordered 12/17/23 Ordered By: Jermain aMrtines Referrals: Jacobo iKdd MD [Primary Care Provider] - Discharge Diet: Usual diet Discharge Activity: Increase activity as tolerated Patient Instructions: Laceration (ED) Activity Restrictions/Additional Instructions: Keep wound clean and dry. It is very important to keep the wound as dry as possible for the next 48 hours. After that she can wash the wound gently with mild soap and water but prevent from submerging underwater for long periods of time. Make sure to dry the wound thoroughly after washing. Sutures need to come out in 7 days. Follow-up with primary care in 1 week for recheck. Return to ED for new concerns or worsening symptoms. Take oral antibiotic as directed. Coding Level of Care Code ED Celery Packer for Flavio Easley
[2023-12-17] MEDS: tetanus-dipt-pertussis 0.5 mL SDV IM (17:24)
[2023-12-17] MEDS: lidocaine-epi 1% 20 mL INJ INJECTION (17:25)
[2023-12-17 17:29] VITALS: PULSE 64; O2SAT 96
[2023-12-17 17:30] VITALS: BP 170/69; PULSE 67; O2SAT 96
[2023-12-17] MEDS: amoxicillin-clav 875-125 mg Tablet 1 TAB PO (19:08)
[2023-12-17 19:13] VITALS: BP 170/88; PULSE 62; O2SAT 96
== END 2023-12-17 19:22 | disposition home or self-care (01) ==
PROVIDERS: Emergency Provider Nurse Practitioner Family; PCP Family Medicine
DX: S01.01XA Laceration without foreign body of scalp, initial encounter (principal); Z79.82 Long term (current) use of aspirin; I10 Essential (primary) hypertension; W01.198A Fall on same level from slipping, tripping and stumbling with subsequent striking against other object, initial encounter; Z23 Encounter for immunization
CPT/HCPCS: 12002; 70450; 72125; 90715; 99284

== ENCOUNTER → 2024-04-24 12:37 | Outpatient (BNVA) | payer MEDICARE, OTHER, SELFPAY | PROVIDERS: PCP Family Medicine; Visit Provider Podiatrist Foot & Ankle Surgery | DX: M76.821 Posterior tibial tendinitis, right leg (principal); M25.371 Other instability, right ankle | CPT/HCPCS: 99213 ==

== ENCOUNTER → 2024-05-15 13:21 | Outpatient (BNVA) | payer MEDICARE, OTHER, SELFPAY | PROVIDERS: PCP Family Medicine; Visit Provider Family Medicine | DX: Q25.46 Tortuous aortic arch (principal); I51.7 Cardiomegaly; I28.9 Disease of pulmonary vessels, unspecified; R05.9 Cough, unspecified; K44.9 Diaphragmatic hernia without obstruction or gangrene; Q79.1 Other congenital malformations of diaphragm; J84.10 Pulmonary fibrosis, unspecified | CPT/HCPCS: 71046 ==

== ENCOUNTER 2024-05-15 13:47 | Day surgery (SDC) | payer MEDICARE, OTHER, SELFPAY ==
[2024-05-15] VITALS (11 sets, daily range): BP systolic 119–187; BP diastolic 51–87; PULSE 63–94; RESP 18–20; TEMP 36.1–36.9; O2SAT 95–100; BMI 36.0
--- NOTE | 2024-05-15 15:45 | ED_ITS ---
HPI - General Adult General: Chief complaint: Airway/Esophagus Foreign Body Stated complaint: food in throat (she is talking) Time Seen by Provider: 05/15/24 15:32 Source: patient Mode of arrival: ambulatory Limitations: no limitations History of Present Illness: Patient is a nice 83-year-old female presents to ED today along with family after being sent by Dr. Schreiber for evaluation of esophageal food foreign body. PMH of HTN and gout. States around 11:45-12:00 she was eating pork chops when she felt like a piece of the pork chop got stuck in her throat. Patient states she has not been able to eat or drink since. She tried to drink water but immediately came right back up. She has been spitting saliva and phlegm since the episode. She has no difficulty breathing. CXR performed at Dr. Schreiber's office essentially unremarkable apart from she does have a hiatal hernia. Onset (ago): hour(s) Location: mouth (throat) Severity: moderate Exacerbating factors: other (swallowing) Associated symptoms: Reports no associated symptoms; Deny chest pain or dyspnea Treatments prior to arrival: none Related Data Home Medications Medication Instructions Recorded Confirmed acetaminophen 500 mg tablet 500 mg PO Q6H PRN Pain 08/17/22 05/15/24 (Tylenol Extra Strength) cholecalciferol (vitamin D3) 25 25 mcg PO DAILY 08/17/22 05/15/24 mcg/drop (1,000 unit/drop) oral drops glucosamine-chondroitin 250 mg-200 2 tab PO TID 08/17/22 05/15/24 mg tablet (Osteo Bi-Flex) magnesium chloride 71.5 mg 71.5 mg PO DAILY 08/17/22 05/15/24 (magnesium chloride) tablet,delayed release (Slow-Mag) potassium citrate 99 mg capsule mg PO 08/17/22 05/15/24 Previous Rx's Medication Instructions Recorded acetaminophen 500 mg tablet 1,000 mg (2 x 500 mg) PO Q8H #0 09/28/22 tabs AFO to the Right Ankle #1 ea 01/30/23 albuterol sulfate 90 mcg/actuation 2 puff inhalation Q6H PRN 11/09/23 aerosol inhaler (Ventolin HFA) shortness of breath or wheezing #8.5 grams allopurinol 100 mg tablet 100 mg PO DAILY #30 tabs 11/09/23 atenolol 50 mg-chlorthalidone 25 1 tab PO DAILY #30 tabs 11/09/23 mg tablet Allergies Allergy/AdvReac Type Severity Reaction Status Date / Time No Known Allergies Allergy Verified 05/15/24 13:00 Review of Systems Const: Denies: fever(s) ENMT: Reports: other (fb sensation when swallowing); Denies: throat pain or odynophagia Card: Denies: chest pain Resp: Denies: dyspnea GI: Denies: abdominal pain Musc: Denies: neck pain PFSH ED PFSH: Medical History Essential hypertension Primary osteoarthritis of right knee Date of procedure: September 27, 2022 Diagnosis: Severe osteoarthritis right knee with valgus deformity Procedure done: Right total knee arthroplasty with [place] guidance Implants: The [employer] total knee system with a size 3 triathlon beaded cruciate retaining femur right, a triathlon titanium tibial component size 3 beaded, a triathlon X3 tibial bearing CS insert size 3 X 12 mm and a beaded triathlon titanium asymmetric patella size 29 x 9 mm Surgical History Hx of cataract surgery Family History Denies family history of Diabetes CAD (coronary artery disease) Hypertension Social History Smoking and tobacco/nicotine status: never used tobacco/nicotine Alcohol intake: never Substance/Drug Use: never Physical Exam Const: COMMON NORMALS: average body habitus, patient oriented x3, no limitations, healthy appearing, alert and well nourished GENERAL APPEARANCE: cooperative ORIENTATION/CONSCIOUSNESS: Yes awake, Yes oriented to person, Yes oriented to place and Yes oriented to time OTHER: occasionally spitting saliva/phlegm into basin HENMT: MOUTH: Normal oral and palatal mucosa present and lip normal THROAT: posterior oropharynx normal Neck/C-Spine: GENERAL: Yes normal visual inspection, No anterior neck swelling and No submandibular swelling Chest: COMMONS NORMALS: normal inspection of the chest and normal palpation of entire chest wall Resp: COMMON NORMALS: normal respiratory effort and clear to auscultation bilaterally AUSCULTATION: clear to auscultation bilaterally Cardio: COMMON NORMALS: regular rate and regular rhythm RATE: regular rate RHYTHM: regular rhythm GI: COMMON NORMALS: Normal to inspection, nondistended, normoactive bowel sounds present, Soft to palpation, non-tender, No hepatosplenomegaly present and no masses PALPATION: Yes Soft to palpation and Yes No hepatosplenomegaly present Neuro: COMMON NORMALS: patient oriented x3 SENSORIUM/ORIENTATION: Yes alert, Yes oriented to person, Yes oriented to place and Yes oriented to time Course Consultations: Consultation #1: Dr. Colon-will see patient and plan for endoscopic removal Vital Signs: Vital signs: Vital Signs Temperature 98.4 F 05/15/24 14:01 Pulse Rate 94 05/15/24 16:30 Respiratory Rate 20 H 05/15/24 16:07 Blood Pressure 119/86 05/15/24 16:30 Pulse Oximetry 97 05/15/24 16:30 Oxygen Delivery Me thod Room Air 05/15/24 16:30 MDM - General Adult Medical Decision Making Trialed IV ativan/glucagon and patient thought maybe she felt better but failed po challenge with water. Spoke to general surgeon who will call in endoscopy team for removal. Medical Records I reviewed the patient's medical records. No radiology studies performed this visit Discharge Plan Discharge Clinical Impression: Esophageal obstruction due to food impaction Condition: Stable Prescriptions: No Action acetaminophen [Tylenol Extra Strength] 500 mg tablet 500 mg PO Q6H PRN (Reason: Pain) glucosamine-chondroitin [Osteo Bi-Flex] 250-200 mg tablet 2 tab PO TID Rx Instructions: give after food/meal Slow-Mag 71.5 mg tablet,delayed release (DR/EC) 71.5 mg PO DAILY cholecalciferol (vitamin D3) 25 mcg/drop ( 1,000 unit/drop) drops 25 mcg PO DAILY potassium citrate 99 mg capsule PO (DME) AFO to the Right Ankle See Rx Instructions .Route .MEDSUPPLY Qty: 1 0RF Rx Instructions: As directed by [facility] albuterol sulfate [Ventolin HFA] 90 mcg/actuation HFA aerosol inhaler 2 puff inhalation Q6H PRN (Reason: shortness of breath or wheezing) Qty: 8.5 11RF allopurinol 100 mg tablet 100 mg PO DAILY Qty: 30 11RF atenolol-chlorthalidone 50-25 mg tablet 1 tab PO DAILY Qty: 30 11RF acetaminophen 500 mg Tablet 1,000 mg PO Q8H Qty: 0 0RF Referrals: Jacobo Kidd MD [Primary Care Provider] - Coding Level of Care Code ED Analytical Lab Technician for Chg Tracee
[2024-05-15] MEDS: LORazepam 2 mg/mL INJ 1 mL 1 MG IVP (16:03)
[2024-05-15] MEDS: glucagon 1 mg/mL KIT 1 mL IVP (16:04)
[2024-05-15] MEDS: sodium chloride 0.9% 1,000 ML 30 ML IV (17:23)
--- NOTE | 2024-05-15 17:24 | ANES.PREANE2 ---
Pre-Anesthetic Assessment Height/Weight: Height 1.57 m Weight 89.358 kg Temp Pulse Resp BP Pulse Ox O2 Del Method 98.4 F 94 20 H 119/86 97 Room Air 05/15/24 14:01 05/15/24 16:30 05/15/24 16:07 05/15/24 16:30 05/15/24 16:30 05/15/24 16:30 Preop Diagnosis: Food bolus EGD Familial anesthetic complications: NOne Was Beta Diana taken within 24 hours: N/A Was Clonidine taken within 24 hours: N/A Last intake: 1100 Social No alcohol and No tobacco Exam alert, oriented x 3, clear to auscultation bilaterally and regular rate & rhythm Airway Mallampati: Class II Dentition: full CV/HEM Hypertension Metabolic Morbid Obesity Anesthetic Plan ASA status: 3E Anesthesia: General Other: RSI Risk of > 500 ml blood loss (7ml/kg in children): No Medications/Allergies Home Medications Medication Instructions Recorded Confirmed Last Taken Type acetaminophen 500 mg tablet 500 mg PO Q6H PRN Pain 08/17/22 05/15/24 09/26/22 History (Tylenol Extra Strength) cholecalciferol (vitamin D3) 25 25 mcg PO DAILY 08/17/22 05/15/24 09/13/22 History mcg/drop (1,000 unit/drop) oral drops glucosamine-chondroitin 250 mg-200 2 tab PO TID 08/17/22 05/15/24 09/13/22 History mg tablet (Osteo Bi-Flex) magnesium chloride 71.5 mg 71.5 mg PO DAILY 08/17/22 05/15/24 09/13/22 History (magnesium chloride) tablet,delayed release (Slow-Mag) potassium citrate 99 mg capsule mg PO 08/17/22 05/15/24 09/13/22 History acetaminophen 500 mg tablet 1,000 mg (2 x 500 mg) PO Q8H #0 09/28/22 05/15/24 Unknown Rx tabs AFO to the Right Ankle #1 ea 01/30/23 05/15/24 Unknown Rx albuterol sulfate 90 mcg/actuation 2 puff inhalation Q6H PRN 11/09/23 05/15/24 Unknown Rx aerosol inhaler (Ventolin HFA) shortness of breath or wheezing #8.5 grams allopurinol 100 mg tablet 100 mg PO DAILY #30 tabs 04/04/24 10/09/24 Unknown Rx atenolol 50 mg-chlorthalidone 25 1 tab PO DAILY #30 tabs 11/09/23 05/15/24 Unknown Rx mg tablet Allergies Allergy/AdvReac Type Severity Reaction Status Date / Time No Known Allergies Allergy Verified 05/15/24 13:00 Current Medications Generic Name Dose Route Start Last Admin Trade Name Freq PRN Reason Stop Dose Admin Sodium Chloride 1,000 mls @ 30 mls/hr 05/15/24 16:53 05/15/24 17:23 Sodium Chloride 0.9% IV 05/16/24 16:52 30 mls/hr .Q24H ONE Administration PFSH Anesthesia Medical History Essential hypertension Primary osteoarthritis of right knee Date of procedure: September 27, 2022 Diagnosis: Severe osteoarthritis right knee with valgus deformity Procedure done: Right total knee arthroplasty with [place] guidance Implants: The [employer] total knee system with a size 3 triathlon beaded cruciate retaining femur right, a triathlon titanium tibial component size 3 beaded, a triathlon X3 tibial bearing CS insert size 3 X 12 mm and a beaded triathlon titanium asymmetric patella size 29 x 9 mm Surgical History Hx of cataract surgery Family History Denies family history of Diabetes CAD (coronary artery disease) Hypertension Social History Smoking and tobacco/nicotine status: never used tobacco/nicotine Alcohol intake: never Substance/Drug Use: never Data Anesthesia Cardiac Studies: No Data to Display
--- NOTE | 2024-05-15 17:39 | PM.HP ---
Providers/Chief Complaint Primary Care Provider: Jacobo Kidd MD Chief Complaint: food in throat (she is talking) History of Present Illness Teena Donohue is a 83 year old female who presents to the hospital with a food bolus impaction after swallowing a pork chop and being unable to clear her esophagus after that, she is not able to tolerate secretions and glucagon has been ineffective and help her relieve the obstruction. Currently no abdominal pain. Review of Systems General: Reports: 10 or more systems reviewed and unremarkable except in HPI and below Medications/Allergies Home Medications Medication Instructions Recorded Confirmed Last Taken Type acetaminophen 500 mg tablet 500 mg PO Q6H PRN Pain 08/17/22 05/15/24 09/26/22 History (Tylenol Extra Strength) cholecalciferol (vitamin D3) 25 25 mcg PO DAILY 08/17/22 05/15/24 09/13/22 History mcg/drop (1,000 unit/drop) oral drops glucosamine-chondroitin 250 mg-200 2 tab PO TID 08/17/22 05/15/24 09/13/22 History mg tablet (Osteo Bi-Flex) magnesium chloride 71.5 mg 71.5 mg PO DAILY 08/17/22 05/15/24 09/13/22 History (magnesium chloride) tablet,delayed release (Slow-Mag) potassium citrate 99 mg capsule mg PO 08/17/22 05/15/24 09/13/22 History acetaminophen 500 mg tablet 1,000 mg (2 x 500 mg) PO Q8H #0 09/28/22 05/15/24 Unknown Rx tabs AFO to the Right Ankle #1 ea 01/30/23 05/15/24 Unknown Rx albuterol sulfate 90 mcg/actuation 2 puff inhalation Q6H PRN 11/09/23 05/15/24 Unknown Rx aerosol inhaler (Ventolin HFA) shortness of breath or wheezing #8.5 grams allopurinol 100 mg tablet 100 mg PO DAILY #30 tabs 11/09/23 05/15/24 Unknown Rx atenolol 50 mg-chlorthalidone 25 1 tab PO DAILY #30 tabs 11/09/23 05/15/24 Unknown Rx mg tablet Allergies Allergy/AdvReac Type Severity Reaction Status Date / Time No Known Allergies Allergy Verified 05/15/24 13:00 PFSH Acute PFSH: Medical History Essential hypertension Primary osteoarthritis of right knee Date of procedure: September 27, 2022 Diagnosis: Severe osteoarthritis right knee with valgus deformity Procedure done: Right total knee arthroplasty with [place] guidance Implants: The [employer] total knee system with a size 3 triathlon beaded cruciate retaining femur right, a triathlon titanium tibial component size 3 beaded, a triathlon X3 tibial bearing CS insert size 3 X 12 mm and a beaded triathlon titanium asymmetric patella size 29 x 9 mm Surgical History Hx of cataract surgery Family History Denies family history of Diabetes CAD (coronary artery disease) Hypertension Social History Smoking and tobacco/nicotine status: never used tobacco/nicotine Alcohol intake: never Substance/Drug Use: never Vitals/I&O/Wt Last Vital Signs Temp 98.4 F 05/15/24 14:01 Pulse 94 05/15/24 16:30 Resp 20 H 05/15/24 16:07 BP 119/86 05/15/24 16:30 Pulse Ox 97 05/15/24 16:30 O2 Del Method Room Air 05/15/24 16:30 Weight last 48 hrs Weight 197 lb Physical Exam GI: OTHER: Abdomen soft nontender nondistended A&P Assessment and plan (1) Esophageal obstruction due to food impaction: Plan After complete history, physical examination and review of all available clinical data the following is my assessment. Patient will benefit from endoscopic evaluation for removal of foreign body in the esophagus. I have discussed with the patient the recent benefits of the procedure including the risk of perforation of the esophagus need for additional interventions, need for transfer to high-level care in the case of esophageal perforation, failed endoscopic retrieval, injury to soft tissue of the mouth and pharynx. Patient shows understanding and is agreeable to proceed. Attestations Medical Necessity Statement*: Plan discharge after endoscopic retrieval of foreign body. Coding Level of Care Code 95422 Diagnoses Esophageal obstruction due to food impaction T18.128A; [id number].[id number]
--- NOTE | 2024-05-15 19:25 | ANE.PACU2 ---
Inpatient post-anesthesia follow up: Airway intact: Yes Vital signs: Temperature 97.2 F Pulse Rate 84 Respiratory Rate 18 Blood Pressure 156/82 Pulse Oximetry 98 Oxygen Delivery Me thod Room Air Oxygen Flow Rate 3 Fraction of Inspir ed Oxygen Hydration adequate: Yes Nausea and vomiting: No Pain level: 1 Mental status: Baseline
== END 2024-05-15 19:22 | disposition home or self-care (01) ==
LOC: ER 17:33 → GILAB 17:46
PROVIDERS: Emergency Provider Physician Assistant; PCP Family Medicine; Visit Provider Surgery
PROC: 0DJ08ZZ Inspection of Upper Intestinal Tract, Via Natural or Artificial Opening Endoscopic (ICD-10-PCS; CPT 43235; principal; 2024-05-15 17:30)
DX: T18.128A Food in esophagus causing other injury, initial encounter (principal); W44.F3XA Food entering into or through a natural orifice, initial encounter; I10 Essential (primary) hypertension; E66.01 Morbid (severe) obesity due to excess calories; Z68.36 Body mass index [BMI] 36.0-36.9, adult
CPT/HCPCS: 43239; 88305; J0330; J1610; J2060; J2704; J3010; J7030

== ENCOUNTER → 2024-05-29 10:40 | Outpatient (BNVA) | payer MEDICARE, OTHER, SELFPAY | PROVIDERS: PCP Family Medicine; Visit Provider Surgery | DX: Z09 Encounter for follow-up examination after completed treatment for conditions other than malignant neoplasm (principal); R03.0 Elevated blood-pressure reading, without diagnosis of hypertension | CPT/HCPCS: 99213 ==

== ENCOUNTER → 2024-09-09 13:55 | Outpatient (BNVA) | payer MEDICARE, OTHER, SELFPAY | PROVIDERS: PCP Family Medicine; Visit Provider Family Medicine | DX: N39.0 Urinary tract infection, site not specified (principal) | CPT/HCPCS: 81000 ==

== ENCOUNTER → 2024-09-10 08:41 | Outpatient (BNVA) | payer MEDICARE, OTHER, SELFPAY | PROVIDERS: PCP Family Medicine; Visit Provider Family Medicine | DX: N39.0 Urinary tract infection, site not specified (principal) | CPT/HCPCS: 87086 ==

== ENCOUNTER → 2025-04-02 13:45 | Outpatient (BNVA) | payer MEDICARE, OTHER, SELFPAY | PROVIDERS: PCP Family Medicine; Visit Provider Specialist | DX: M65.341 Trigger finger, right ring finger (principal); Z01.818 Encounter for other preprocedural examination | CPT/HCPCS: 73130; 80053; 81001; 85025; 99214 ==

== ENCOUNTER 2025-04-03 10:04 | Day surgery (SDC) | payer MEDICARE, OTHER, SELFPAY ==
[2025-04-03] VITALS (9 sets, daily range): BP systolic 81–148; BP diastolic 59–78; PULSE 54–66; RESP 16; TEMP 36.6; O2SAT 93–100; BMI 35.1
[2025-04-03] MEDS: acetaminophen 1,000 MG/100 ML PIGGYBACK 400 MG IV (11:32)
--- NOTE | 2025-04-03 11:41 | W.PM.OPSUD ---
Surgery/Procedure H&P Update DATE OF PROCEDURE: April 03, 2025 DATE H&P PERFORMED: 04/02/25 H&P UPDATE INFORMATION: I have reviewed H&P completed within last 30 days, I have examined patient prior to procedure, No changes to prior documentation, H&P is in [facility] EMR on date indicated and Risks and benefits of the procedure reviewed PREOP DIAGNOSIS: Right Ring finger triggering PLANNED PROCEDURE: Operation Date: 04/03/25 12:40 Proposed Procedures p RIGHT RING FINGER TRIGGER FINGER RELEASE(Right) - Ericka Whatley MD Related Problem List Diagnoses 1. Trigger ring finger of right hand: Qualifiers: Trigger finger location: ring finger Laterality: right Qualified Code(s): M65.341 - Trigger finger, right ring finger
[2025-04-03] MEDS: ceFAZolin 2,000 mg SDV 2000 MG IVP (11:51)
[2025-04-03] MEDS: BUPivacaine 0.5% INJ 30 mL XX (12:25)
--- NOTE | 2025-04-03 13:13 | P.OP_ITS ---
Operative Report Date of procedure: April 03, 2025 Pre-op diagnosis: Right ring trigger finger Post-op diagnosis: Right ring trigger finger Post-op findings: Significant tightness of the A1 marilee finding on the flexor tendons consistent with trigger finger Procedure done: Right ring trigger finger release Implants: None Specimens removed/disposition: None Pathology: None Surgeon: Ericka Whatley MD Director Of Content Marketing: None Anesthesia: General (Per LMA, ASA 3) Estimated blood loss (mL): 1 Tourniquet time (min): 15 (At 250 mmHg) IV fluids (mL): 250 Urine output (mL): 0 (No Gallagher) Complications: None Findings: As noted above Condition: stable Disposition: PACU (Then return to same-day surgery for discharge to home) Brief History: This 84-year-old woman who presented to the office yesterday in a metal splint on her right ring finger. By history, she had a right ring trigger finger that was stuck in a flexed position. Her primary care provider was able to flex the finger and placed her in an aluminum foam type splint which went into the palm of her hand to protect her from retriggering. She was also advised to obtain a finger splint to hold the finger straight. She had not had triggering again. But she was stiff in the small finger and not comfortable moving the ring finger. For this reason, we scheduled her for surgical intervention for trigger finger release. Risks and complications were discussed with the patient. Consents were signed and questions were answered. Procedure: Patient was brought to the operating theater. She was placed on the operating room table. General anesthesia per LMA, ASA 3, was administered uneventfully. A tourniquet was placed high on the arm and the arm was exsanguinated prior to commencement of the surgical procedure. It was elevated to 250 mmHg. Tourniquet time was 15 minutes. Surgical pause was performed prior to commencement of the surgical procedure. At the time of the surgical pause we identified the site and side of surgery. We also identified the patient's identity and appropriate administration of IV antibiotics, Ancef 2 g. Following the surgical pause, an incision was made along the distal palmar crease beneath the ring finger. Dissection continued through the skin to the subcutaneous tissues using a scalpel. Blunt dissection was then utilized to spread soft tissues and allow access to the A1 marilee. It was then incised longitudinally and sharply using a knife. This was accomplished without difficulty and atraumatically. Once the A1 marilee was released, tendons were brought up out of the wound and evaluated. There were no gross masses on the tendons. Tendons were returned to normal position. We then irrigated the wound and subsequently closed it with 3-0 nylon with an interrupted mattress type suture. Prior to closure, bupivacaine was injected into the subcutaneous tissues as a local anesthetic. Sterile dressing was then placed consisting of Dermabond, OpSite, fluffed fluffs, and an Javi wrap. The patient was returned to recovery in satisfactory condition. She will be discharged home to follow-up with me in the office. There were no complications and no specimens. Related Problem List Diagnoses 1. Trigger ring finger of right hand:
--- NOTE | 2025-04-03 14:05 | ANE.PACU2 ---
Inpatient post-anesthesia follow up: Airway intact: Yes Vital signs: Temperature 98 F Pulse Rate 54 Respiratory Rate 16 Blood Pressure 112/65 Pulse Oximetry 95 Oxygen Delivery Me thod Room Air Oxygen Flow Rate 10 Fraction of Inspir ed Oxygen Hydration adequate: Yes Nausea and vomiting: No Pain level: 1 Mental status: Baseline
== END 2025-04-03 14:05 | disposition home or self-care (01) ==
PROVIDERS: PCP Family Medicine; Visit Provider Specialist
PROC: (CPT 26055; principal; 2025-04-03 12:30)
DX: M65.341 Trigger finger, right ring finger (principal); K21.9 Gastro-esophageal reflux disease without esophagitis; I10 Essential (primary) hypertension
CPT/HCPCS: 26055; J0131; J0690; J1100; J2405; J2704; J3010; J3490; J9999

== ENCOUNTER → 2025-04-18 07:33 | Outpatient (BNVA) | payer MEDICARE, OTHER, SELFPAY | PROVIDERS: PCP Family Medicine; Visit Provider Nurse Practitioner | DX: Z98.890 Other specified postprocedural states (principal) | CPT/HCPCS: 99024 ==